=== PATIENT | male | born 1970 | race Two or more races ===

== ENCOUNTER 2024-08-09 20:53 | Emergency (ER) | payer OTHER ==
[~2024-08-09] VITALS: Ht 170.2 cm; Wt 81.6 kg
[2024-08-09] MEDS ORDERED: COZAAR100 MG PO (21:01)
[2024-08-09] MEDS ORDERED: MECLIZINE HCL 25 MG TABLET PO STA (21:28)
[2024-08-09] MEDS ORDERED: MECLIZINE HCL 25 MG TABLET PO ONE (21:36)
== END 2024-08-09 21:48 | disposition home or self-care (01) ==
LOC: ER 20:56
DX: H81.13 Benign paroxysmal vertigo, bilateral (principal); I10 Essential (primary) hypertension

== ENCOUNTER 2024-10-10 10:15 | Inpatient (IN) | payer OTHER ==
[~2024-10-10] VITALS: Ht 175.3 cm; Wt 81.6 kg
[~2024-10-10 10:15] MED LIST: COZAAR100 MG PO
[2024-10-10 11:39] VITALS: BP 123/85
[2024-10-17] MEDS ORDERED: CEFAZOLIN SODIUM 1,000 MG VIAL ONE (07:54)
[2024-10-17] MEDS ORDERED: CEFTRIAXONE SODIUM 2,000 MG VIAL ONE (07:59)
[2024-10-17] MEDS ORDERED: METRONIDAZOLE/SODIUM CHLORIDE 500 MG/100 ML PIGGYBACK IV ONE (07:59)
[2024-10-17] MEDS ORDERED: POTASSIUM PHOS,M-BASIC-D-BASIC 45mM/15ml VIAL IV ONE (20:00)
[2024-10-18 07:01] LABS: HEMATOCRIT 38.9 % (39.0-48.0); HEMOGLOBIN 13.5 g/dL (13-16.00); MEAN CELL VOLUME 91.8 fL (80.0-100.00); MEAN CORPUSCULAR HEMOGLOBIN 31.8 pg (27.00-32.0); MEAN CORPUSCULAR HGB CONC 34.7 g/dl (32.0-36.0); PLATELET COUNT 213 K/uL (150-450); RED BLOOD COUNT 4.23 M/uL (4.00-6.00); RED CELL DISTRIBUTION WIDTH 13.7 % (11.5-14.5)
[2024-10-18 07:34] LABS: CALCIUM 8.3 mg/dL (8.5-10.1); CREATININE SERUM 0.94 mg/dL (0.70-1.30); GFR 83.95; MAGNESIUM 1.5 mg/dL (1.8-2.4); PHOSPHOROUS 4.7 mg/dL (2.5-4.9); POTASSIUM 4.51 mEq/L (3.5-5.1)
[2024-10-18] MEDS ORDERED: RINGERS SOLUTION,LACTATED 1,000 ML IV SCH ×2 (07:45→12:45)
[2024-10-18] MEDS ORDERED: ONDANSETRON HCL 2 MG/ML VIAL IV PRN (08:00)
[2024-10-18] MEDS ORDERED: ENALAPRILAT DIHYDRATE 1.25 MG/ML VIAL IV PRN (08:00)
[2024-10-18] MEDS ORDERED: GABAPENTIN 300 MG CAPSULE PO PRN (08:00)
[2024-10-18] MEDS ORDERED: MORPHINE SULFATE 4 MG/ML CARTRIDGE IV PRN (08:00)
[2024-10-18] MEDS ORDERED: FAMOTIDINE/PF 20 MG/2 ML VIAL IV SCH (09:00)
[2024-10-18] MEDS ORDERED: ENOXAPARIN SODIUM 40 MG/0.4 ML SYRINGE SUBCUTANEO SCH (09:00)
[2024-10-18] MEDS ORDERED: LOSARTAN/HYDROCHLOROTHIAZIDE 1 TAB TABLET PO SCH (11:08)
[2024-10-18] MEDS ORDERED: ENALAPRILAT DIHYDRATE 2.5 MG/2 ML VIAL IV PRN (11:15)
[2024-10-18] MEDS ORDERED: ACETAMINOPHEN 500 MG GEL..CAP PO SCH (12:00)
[2024-10-18 16:16] VITALS: BP 121/79; O2SAT 97
[2024-10-19 01:17] VITALS: BP 112/73; O2SAT 97
[2024-10-19 08:30] VITALS: BP 118/74; O2SAT 95
[2024-10-19 16:12] VITALS: BP 118/74; O2SAT 96
[2024-10-20 00:50] VITALS: BP 116/65; O2SAT 95
[2024-10-20 06:12] LABS: HEMATOCRIT 28.7 % (39.0-48.0); HEMOGLOBIN 10.1 g/dL (13-16.00); MEAN CELL VOLUME 93.1 fL (80.0-100.00); MEAN CORPUSCULAR HEMOGLOBIN 32.7 pg (27.00-32.0); MEAN CORPUSCULAR HGB CONC 35.1 g/dl (32.0-36.0); PLATELET COUNT 150 K/uL (150-450); RED BLOOD COUNT 3.08 M/uL (4.00-6.00); RED CELL DISTRIBUTION WIDTH 13.2 % (11.5-14.5)
[2024-10-20 09:17] VITALS: BP 125/80; O2SAT 96
[2024-10-20] MEDS ORDERED: ACETAMINOPHEN500 M1 PO (09:47)
[2024-10-20] MEDS ORDERED: INTESTINEX680 M1 PO (09:47)
[2024-10-20] MEDS ORDERED: NEURONTIN300 MG PO (09:47)
[2024-10-20] MEDS ORDERED: INTEGRA F CAPS1 EACH PO (09:47)
== END 2024-10-20 16:28 | disposition home or self-care (01) | DRG 330 ==
LOC: O/R 10-17 06:39 → SURG 10-17 06:39 → SURH 10-17 10:15 → SURG 10-17 20:00
PROVIDERS: ADMIT Surgery; ATTEND Surgery
PROC: 0DTN4ZZ Resection of Sigmoid Colon, Percutaneous Endoscopic Approach (ICD-10-PCS; principal; 2024-10-18)
PROC: 0DBP4ZZ Excision of Rectum, Percutaneous Endoscopic Approach (ICD-10-PCS; 2024-10-18)
PROC: 07BC4ZX Excision of Pelvis Lymphatic, Percutaneous Endoscopic Approach, Diagnostic (ICD-10-PCS; 2024-10-18)
DX: C18.7 Malignant neoplasm of sigmoid colon (principal); K62.5 Hemorrhage of anus and rectum; R59.0 Localized enlarged lymph nodes